=== PATIENT | female | born 1990 | race Caucasian/White ===

== ENCOUNTER 2019-02-13 03:40 | Inpatient (IN) | payer OTHER ==
[2019-02-13] MEDS ORDERED: Ondansetron PF 4 MG/2 ML Vial IVP PRN ×2 (04:17→20:14)
[2019-02-13] MEDS ORDERED: Misoprostol 200 MCG TAB PR PRN (04:17)
[2019-02-13] MEDS ORDERED: Butorphanol Tartrate 1 MG/ML VIAL SLOW IVP PRN (04:17)
[2019-02-13] MEDS ORDERED: Diphenoxylate HCl/Atropine Tablet PO PRN ×2 (04:17)
[2019-02-13] MEDS ORDERED: HYDROcodone/Acetaminophen 5/325 mg Tablet PO PRN ×2 (04:17)
[2019-02-13] MEDS ORDERED: Carboprost 250 MCG/ML AMP IM PRN (04:17)
[2019-02-13] MEDS ORDERED: NS / Oxytocin 40 units/1000ml 1,000 ML IV PRN (04:17)
[2019-02-13] MEDS ORDERED: Methylergonovine 0.2 MG/ML VIAL IM PRN (04:17)
[2019-02-13] MEDS ORDERED: Promethazine HCl 25 MG/ML VIAL IM PRN ×2 (04:17→20:14)
[2019-02-13] MEDS ORDERED: Lidocaine 1% (PF) 30 ML VIAL SC PRN (04:17)
[2019-02-13] MEDS ORDERED: Ibuprofen 800 MG TAB PO PRN (04:17)
[2019-02-13] MEDS ORDERED: hydrALAZINE 20 MG/ML VIAL SLOW IVP PRN (04:17)
[2019-02-13 05:13] LABS: Hemoglobin 11.8 g/dL (12.0-16.0); Mean Corpuscular HGB CONC 34.6 g/dL (32.0-36.0); Mean Corpuscular Hemoglobin 30.1 pg (27.0-31.0); Mean Corpuscular Volume 87.1 fL (78.0-98.0); Mean Platelet Volume 9.6 fL (7.4-10.4); Platelet Count 167 thou/uL (130-400); RBC Distribution Width 13.7 % (11.5-14.5); Red Blood Cell (RBC) Count 3.91 mill/uL (4.20-5.40); White Blood Cell (WBC) Count 12.6 thou/uL (4.8-10.8)
[2019-02-13 05:21] VITALS: BMI 33.8
[2019-02-13 05:31] LABS: ALT (SGPT) 8 U/L (8-55); AST (SGOT) 14 U/L (5-34); Albumin 3.5 g/dL (3.5-5.0); Alkaline Phosphatase 131 U/L (40-150); Anion Gap 14 mmol/L (10-20); BUN (Urea Nitrogen) 11 mg/dL (7.0-18.7); Bilirubin, Total 0.3 mg/dL (0.2-1.2); Calc. Creatinine Clearance 163 mL/min (70-130); Calcium 9.2 mg/dL (7.8-10.44); Carbon Dioxide 19 mmol/L (22-29); Chloride 107 mmol/L (98-107); Estimated GFR-MDRD Greater than 90; Globulin 2.4 g/dL (2.4-3.5); Glucose 86 mg/dL (70-105); Potassium 3.8 mmol/L (3.5-5.1); Protein, Total 5.9 g/dL (6.0-8.3); Sodium 136 mmol/L (136-145)
[2019-02-13 05:45] LABS: HBSAg Index 0.16 S/CO (0-0.99); Hep B Surf Ag Non-Reactive S/CO (NonReactive)
[2019-02-13 05:46] LABS: Syphilis Antibody Nonreactive (Nonreactive); Syphilis Antibody Index 0.03 S/CO (<1.00 Non-Reactive)
--- NOTE | 2019-02-13 11:32 | PDOC.LDHP ---
Labor and Delivery H&P Chief complaint: loss of fluid (and contractions) HPI: Pt was woken up around 0100am with a pop and ton of fluid loss. Five minutes later she started salvador. She has continued to lose fluid the entire morning. She arrived to the hospital at 0400 am with her automatic clipper. Contractions have picked up in intensity since her arrival. Current gestational age (weeks): 39 Due date: 02/15/19 Grav: 1 Para: 0 Current complications: other (polyhydramnios.) Abnormal US findings: Yes Current medications: pre-familia vitamins Previous surgical history: appendectomy Allergies/Adverse Reactions: Allergies Allergy/AdvReac Type Severity Reaction Status Date / Time No Known Allergies Allergy Verified 02/13/19 05:14 Social history: none - Physical Exam Abnormal vital signs: Mild range systolic blood pressure on admission and normal in 119s/60s . General: NAD Heart: other Lungs: nonlabored breathing Abdomen: gravid Extremeties: pitting edema FHT: category 1 - Vaginal Exam cm dilated: 3 Effacement: 50% Station: -2 - OB Labs Blood type: A RH: positive Antibody Screen: negative HIV: negative RPR: negative HEPSAg: negative 1 hour GCT: negative GBS: negative Urine drug screen: negative Rubella: immune - Assessment L&D Assessment: term rupture in membranes - Plan Plan: admit to L&D
[2019-02-13 13:42] LABS: Creatinine, Urine 57.96 mg/dL (47-110)
--- NOTE | 2019-02-13 17:38 | PDOC.LDPN ---
Labor & Delivery Progress Note - Subjective Subjective: comfortable - Objective Vital signs reviewed and normal: yes General: NAD, breathing through contractions Uterine fundus: non tender Dilation: 7 Effacement: 90% Station: 1+ FHT: category 1 [place] contractions every: q5-7 mins Resuscitative measures: maternal position change - Assessment (1) 40 weeks gestation of Code(s): Z3A.40 - 40 WEEKS GESTATION OF Current Visit: Yes Status : Acute (2) Primigravida Code(s): Z34.00 - ENCNTR FOR SUPRVSN OF NORMAL FIRST , UNSP TRIMESTER Current Visit: Yes Status: Acute (3) Failure to progress in first stage of labor Code(s): [id number] - Current Visit: Yes Status: Acute Plan: labor augmentation, other (Epidural for pain management and pelvic floor relaxation. Pitocin for augmentation. reasses as clinically indicated. IUPC if needed. )
[2019-02-13] MEDS ORDERED: Fentanyl 4 mcg/Bup 0.1% Cadd 100 ML ONE (17:43)
[2019-02-13] MEDS ORDERED: NS w/ Oxytocin 10 units 500 ML IV SCH (17:45)
[2019-02-13] MEDS: Lactated Ringer's 1,000 ML IV PRN ×2 (18:41→19:49)
[2019-02-13] MEDS ORDERED: diphenhydrAMINE 50 MG/ML VIAL IVP PRN (20:14)
[2019-02-13] MEDS ORDERED: Lactated Ringer's 500 ML IV PRN (20:14)
[2019-02-13] MEDS ORDERED: ePHEDrine/0.9% NaCl/PF SYRINGE 50 mg/10 ml SLOW IVP PRN (20:14)
[2019-02-13] MEDS ORDERED: Acetaminophen 325 MG TAB PO PRN (20:14)
[2019-02-13] MEDS ORDERED: Naloxone HCl 0.4 mg/ml Vial IVP PRN ×2 (20:14)
[2019-02-13] MEDS ORDERED: Communication Order-Pharmacy FS SCH (20:15)
[2019-02-13] MEDS ORDERED: Fentanyl 4 mcg/Bupivacaine 0.1% Cassette 100 ML EPIDURAL SCH (20:15)
[2019-02-13 20:48] LABS: Creatinine, Urine 109.01 mg/dL (47-110)
[2019-02-14] MEDS ORDERED: Fentanyl 4 mcg/Bup 0.1% Cadd 100 ML ONE (01:01)
[2019-02-14] MEDS: Lactated Ringer's 1,000 ML IV PRN (01:36)
[2019-02-14] MEDS ORDERED: Bicitra 30 ML UDCUP PO SCH (06:15)
[2019-02-14] MEDS ORDERED: CEFAZOLIN 2 GM in Premix Bag 1 BAG IVPB SCH (06:15)
[2019-02-14] MEDS ORDERED: Azithromycin 500 MG in Sodium Chloride 0.9% 250 ML 250 ML IVPB SCH (06:30)
[2019-02-14] MEDS ORDERED: Ketorolac Tromethamine 30 MG/ML VIAL ONE ×2 (06:31→07:32)
[2019-02-14] MEDS ORDERED: Ondansetron PF 4 MG/2 ML Vial ONE ×2 (06:31→07:32)
[2019-02-14] MEDS ORDERED: Dexamethasone 4 mg/ml Vial ONE (06:31)
[2019-02-14] MEDS ORDERED: Oxytocin 10 UNITS/ML VIAL ONE (06:31)
[2019-02-14] MEDS ORDERED: Lidocaine 2% 10 ML INJ ONE ×2 (06:41→06:56)
[2019-02-14] MEDS ORDERED: MORPHINE 5 MG/10 ML PF VIAL ONE (06:57)
[2019-02-14] MEDS ORDERED: PHENYLEPHRINE-NS 100 MCG/ML 10 ML SYRINGE ONE ×2 (06:59→07:32)
[2019-02-14] MEDS ORDERED: diphenhydrAMINE 50 MG/ML VIAL ONE ×2 (07:06→07:32)
[2019-02-14] MEDS ORDERED: HYDROmorphone 2 MG/ML VIAL SLOW IVP PRN (07:27)
[2019-02-14] MEDS ORDERED: Naloxone HCl 0.4 mg/ml Vial IVP PRN ×2 (07:27)
[2019-02-14] MEDS ORDERED: diphenhydrAMINE 50 MG/ML VIAL IVP PRN (07:27)
[2019-02-14] MEDS ORDERED: Ondansetron PF 4 MG/2 ML Vial IVP PRN ×2 (07:27→10:39)
[2019-02-14] MEDS ORDERED: Promethazine HCl 25 MG/ML VIAL IM PRN ×2 (07:27→10:39)
[2019-02-14] MEDS ORDERED: Promethazine HCl 25 MG SUPP PR PRN (07:27)
[2019-02-14] MEDS ORDERED: Naloxone HCl 0.4 mg/ml Vial IV PRN (07:27)
[2019-02-14] MEDS ORDERED: Ondansetron HCl/PF 4 MG/2 ML Vial IVP PRN (07:27)
[2019-02-14] MEDS ORDERED: Meperidine HCl/PF 25 MG/ML VIAL SLOW IVP PRN (07:27)
[2019-02-14] MEDS ORDERED: L&D-Morphine 4 MG/ML VIAL SLOW IVP PRN (07:27)
[2019-02-14] MEDS ORDERED: Communication Order-Pharmacy FS SCH (07:30)
[2019-02-14] MEDS ORDERED: Lidocaine 2% PF 5 ML VIAL ONE (07:32)
[2019-02-14] MEDS ORDERED: Dexamethasone 20 MG/5 ML VIAL ONE (07:32)
[2019-02-14] MEDS ORDERED: Bupivacaine/Epinephrine 0.5% 10 ML VIAL ONE (07:43)
--- NOTE | 2019-02-14 08:31 | OP ---
DATE OF PROCEDURE: 02/14/2019 PRIMARY TIGHT COOPER: Chrissy Ray CNM PREOPERATIVE DIAGNOSES: 1. Intrauterine at 39 weeks and 6 days. 2. Arrest of labor. POSTOPERATIVE DIAGNOSES: 1. Intrauterine at 39 weeks and 6 days. 2. Arrest of labor. PROCEDURE PERFORMED: Primary lower-transverse section. MANAGER CIVIL: Chrissy Ray CNM. ANESTHESIA: Spinal or epidural. BLOOD LOSS: Quantitative blood loss not available at the time of dictation. Estimated blood loss about 500 mL. URINARY OUTPUT: Urine clear. COUNTS: Correct. COMPLICATIONS: None. FINDINGS: Female infant delivered at 0716 hours. Apgars 8 and 9. Weight unavailable at the time of dictation. Normal-appearing uterus. SPECIMENS: Blood gas with a pH of 7.2. DESCRIPTION OF PROCEDURE: Ms. Ashley Coyne was taken to the operating room for primary secondary to arrest of labor. The patient had made very slow progress over the last 8 hours with no change management consultant the last several hours with documented adequate contractions. She was taken to the operating room, where her anesthesia was made to be adequate. She was prepared and draped in the normal sterile fashion and placed in the dorsal supine position. A Pfannenstiel skin incision was made and carried down to the level of the fascia. Fascia was incised and extended laterally with Sandhu scissors. The fascia was then grasped with 2 Brandyn clamps and elevated and dissected off sharply and bluntly from the underlying rectus muscles both superiorly and inferiorly. Peritoneal cavity was entered into bluntly and extended bluntly and sharply. A Lbake O retractor was then inserted. A bladder flap was created. Hysterotomy was made in the lower uterine segment in a transverse fashion. head was then delivered to the sterile field and with the aid of abdominal pressure, the baby was delivered without complication. The was bulb suctioned. Cord was delayed, clamped and cut, and the was handed to the awaiting attendants. The cord segment was then collected for blood gases. Blood was collected for assessment and the placenta was manually extracted. The hysterotomy was then closed with #1 PDS in a running locked suture, followed by an imbricating layer. Additional cbuann-lk-dryew was necessary for good hemostasis. The hysterotomy was then irrigated and found to be hemostatic. The peritoneum was closed with 2-0 chromic in a running fashion. The fascia was closed with 0 Vicryl in a running fashion. The subcu fat was closed with 2-0 plain gut in a running fashion. Skin was closed with 4-0 Monocryl in a running fashion. The patient was taken to recovery room in stable condition. Job ID: [id number]
[2019-02-14] MEDS ORDERED: Bisacodyl 10 MG SUPP PR PRN (10:39)
[2019-02-14] MEDS ORDERED: NS / Oxytocin 40 units/1000ml 1,000 ML IV SCH (10:39)
[2019-02-14] MEDS ORDERED: Misoprostol 200 MCG TAB PR PRN (10:39)
[2019-02-14] MEDS ORDERED: hydrALAZINE 20 MG/ML VIAL SLOW IVP PRN (10:39)
[2019-02-14] MEDS ORDERED: Methylergonovine 0.2 MG/ML VIAL IM PRN (10:39)
[2019-02-14] MEDS ORDERED: Adacel (T-DAP) 0.5 ML SYRINGE IM ONE (10:39)
[2019-02-14] MEDS ORDERED: diphenhydrAMINE 25 MG CAP PO PRN (10:39)
[2019-02-14] MEDS ORDERED: Lidocaine 2% MPF 10 ML AMP (For Epidural Use) ONE (11:11)
[2019-02-14] MEDS ORDERED: Bupivacaine/Epinephrine 0.25% 30 ML VIAL ONE (11:11)
[2019-02-14] MEDS: Lactated Ringer's 1,000 ML IV SCH ×2 (12:14→16:09)
[2019-02-14] MEDS: Ketorolac Tromethamine 30 MG/ML VIAL IVP SCH ×2 (14:59→23:44)
[2019-02-14] MEDS: Ibuprofen 800 MG TAB PO SCH ×2 (15:03→23:46)
[2019-02-14] MEDS: Docusate Calcium (SURFAK) 240 MG CAP PO SCH (23:45)
--- NOTE | 2019-02-15 00:14 | PDOC.PP ---
Post Progress Note Post Day #: POD1 Subjective: Resting, no specific c/o. PO intake tolerated: yes Flatus: no Ambulation: yes Vital Signs (12 hours) Temp Pulse Resp BP Pulse Ox 02/14/19 19:01 99.2 F 74 12 105/57 L 96 02/14/19 15:03 99.5 F 76 12 131/66 96 02/14/19 14:05 95 02/14/19 13:00 98.9 F 76 20 118/68 Weight Weight 83.915 kg - Physical Examination General: NAD Respiratory: non-labored breathing Abdominal: no distention Skin: CS incision dry & intact Psychiatric: normal affect Result Diagrams: 02/13/19 04:54 02/13/19 04:54 Additional Labs: Post Labs Blood Type A POSITIVE 02/13/19 04:54 Hep Bs Antigen Non-Reactive S/CO (NonReactive) 02/13/19 04:54 - Assessment/Plan Doing well. Werner is out. Routine postop care.
[2019-02-15] MEDS: Ketorolac Tromethamine 30 MG/ML VIAL IVP SCH ×2 (04:37→07:28)
[2019-02-15] MEDS: Ferrous Sulfate 325 MG TAB PO SCH ×3 (04:37→21:17)
[2019-02-15] MEDS: Ibuprofen 800 MG TAB PO SCH ×3 (04:38→21:17)
[2019-02-15] MEDS ORDERED: Sodium Chloride 0.9% 10 ML ONE (04:41)
[2019-02-15 07:23] LABS: #Lymphocytes 1.2 thou/uL (1.20-3.40); #Monocytes 1.1 thou/uL (0.11-0.59); #Neutrophils 12.1 thou/uL (1.40-6.50); %Eosinophils 0.2 % (0.0-10.0); %Lymphocytes 8.2 % (21.0-51.0); %Monocytes 7.7 % (0.0-10.0); %Neutrophils 83.8 % (42.0-75.0); Mean Corpuscular HGB CONC 34.6 g/dL (32.0-36.0); Mean Corpuscular Hemoglobin 31.1 pg (27.0-31.0); Mean Corpuscular Volume 90.1 fL (78.0-98.0); Platelet Count 121 thou/uL (130-400); RBC Distribution Width 14.1 % (11.5-14.5); Red Blood Cell (RBC) Count 2.57 mill/uL (4.20-5.40); White Blood Cell (WBC) Count 14.4 thou/uL (4.8-10.8)
[2019-02-15] MEDS: HYDROcodone/Acetaminophen 5/325 mg Tablet PO PRN ×2 (09:12→19:58)
[2019-02-15] MEDS: Prenatal Vitamin 1 TAB PO SCH (09:12)
[2019-02-15] MEDS: Docusate Calcium (SURFAK) 240 MG CAP PO SCH ×2 (09:12→21:18)
[2019-02-15] MEDS: Lactated Ringer's 1,000 ML IV SCH (13:38)
[2019-02-15] MEDS: Simethicone Chewable 80 MG TAB PO PRN (21:17)
[2019-02-16] MEDS: HYDROcodone/Acetaminophen 5/325 mg Tablet PO PRN ×5 (02:40→22:53)
--- NOTE | 2019-02-16 02:46 | PDOC.EVN ---
Event Note - Event Note Event Note: CAlled to bedside for sudden onset sob while walking from the bathroom. Pt is pod #2 for a primary csection. When i arrived pt was in her bed feeling better. She reports lungs felt like they were burning. vital signs are stable with bp mildly elevated. o2 sats 98% lungs clear, heart regular rate with strong systolic flow murmur. Pt reports that she has been evaluated by cardiology already for this murmur and it is benign. LE are nontender and symetrical. Neg ag's sign. hgb 8 from 12. Transient sob anemia flow murmur - not new will get ekg, repeat cbc If symptoms persist further eval for cardiomyopathy or PE may be warrented.
[2019-02-16] MEDS: Lactated Ringer's 1,000 ML IV SCH ×3 (05:47→15:39)
[2019-02-16] MEDS: Ibuprofen 800 MG TAB PO SCH ×3 (06:12→21:47)
[2019-02-16] MEDS: Simethicone Chewable 80 MG TAB PO PRN (06:21)
[2019-02-16 08:40] LABS: Mean Corpuscular HGB CONC 33.6 g/dL (32.0-36.0); Mean Corpuscular Volume 89.4 fL (78.0-98.0); Mean Platelet Volume 8.4 fL (7.4-10.4); Platelet Count 156 thou/uL (130-400); RBC Distribution Width 14.2 % (11.5-14.5); White Blood Cell (WBC) Count 16.2 thou/uL (4.8-10.8)
--- NOTE | 2019-02-16 09:03 | RAD ---
EXAM: Chest 2 views: HISTORY: Shortness of breath COMPARISON: None. FINDINGS: There is a normal-sized cardiomediastinal silhouette. There is no evidence of consolidation, mass, or pleural effusion. The bones are unremarkable. IMPRESSION: No evidence of acute cardiopulmonary disease
--- NOTE | 2019-02-16 10:07 | PDOC.EVN ---
Event Note - Event Note Event Note: Episode of SOB reported last night. CXR WNL, EKG is NSR with rate of 75. Hgb up from 8.0 to 9.0. Just walked and feeling better. Will observe for now.
[2019-02-16] MEDS: Prenatal Vitamin 1 TAB PO SCH (10:10)
[2019-02-16] MEDS: Ferrous Sulfate 325 MG TAB PO SCH ×2 (10:11→20:37)
[2019-02-16] MEDS: Docusate Calcium (SURFAK) 240 MG CAP PO SCH ×2 (10:11→20:37)
[2019-02-16] MEDS ORDERED: Labetalol 100 MG TAB PO SCH (13:45)
[2019-02-16 14:04] LABS: ALT (SGPT) 11 U/L (8-55); AST (SGOT) 18 U/L (5-34); Albumin 2.9 g/dL (3.5-5.0); Alkaline Phosphatase 89 U/L (40-150); Anion Gap 11 mmol/L (10-20); BUN (Urea Nitrogen) 9 mg/dL (7.0-18.7); Bilirubin, Total 0.2 mg/dL (0.2-1.2); Calc. Creatinine Clearance 182 mL/min (70-130); Calcium 8.9 mg/dL (7.8-10.44); Carbon Dioxide 24 mmol/L (22-29); Chloride 107 mmol/L (98-107); Estimated GFR-MDRD Greater than 90; Globulin 2.5 g/dL (2.4-3.5); Glucose 90 mg/dL (70-105); Potassium 3.9 mmol/L (3.5-5.1); Protein, Total 5.4 g/dL (6.0-8.3); Sodium 138 mmol/L (136-145)
[2019-02-16] MEDS ORDERED: Calcium Gluconate 4.6 MEQ in Sodium Chloride 0.9% 100 ML IVPB PRN (14:18)
--- NOTE | 2019-02-16 14:29 | PDOC.EVN ---
Event Note - Event Note Event Note: BPs now 160/86, 165/91. Denies EDGAR or visual changes, RUQ pain. Labs: plts= 156K, T. bili= 0.2, AST/ALT= 18/11. Urine Prot/Cr ratio on admit was 1.32. She was not given Mg in labor. Will transfer to L&D for MgSo4 and BP control.
[2019-02-16] MEDS ORDERED: Magnesium Sulfate 20 GM/WATER 500 ML BAG IVPB SCH (14:30)
[2019-02-16] MEDS: Magnesium Sulfate 20 gm/500 ml 20 GM/500 ML BAG IVPB SCH ×2 (15:39→23:42)
[2019-02-16] MEDS: Acetaminophen 325 MG TAB PO PRN (19:13)
[2019-02-16] MEDS: Labetalol 100 MG TAB PO SCH (20:37)
--- NOTE | 2019-02-17 00:22 | PDOC.PP ---
Post Progress Note Post Day #: POD3 Subjective: Back in L&D. Denies EDGAR or visual changes. PO intake tolerated: yes Flatus: yes Ambulation: yes Vital Signs (12 hours) Temp Pulse Resp BP BP 02/16/19 20:37 87 141/82 H 02/16/19 14:01 69 02/16/19 13:00 69 165/91 H 02/16/19 12:35 160/86 H 02/16/19 12:30 98.1 F 76 15 153/80 H Weight Weight 83.915 kg - Physical Examination General: NAD Respiratory: non-labored breathing Abdominal: no distention Skin: CS incision dry & intact Neurological: no gross focal deficits Psychiatric: normal affect Result Diagrams: 02/16/19 08:36 02/16/19 13:31 Additional Labs: Post Labs Blood Type A POSITIVE 02/13/19 04:54 Hep Bs Antigen Non-Reactive S/CO (NonReactive) 02/13/19 04:54 - Assessment/Plan BPs remain acceptable on MgS04 2 gm/hr and loading dose. Labs earlier today WNL. Continue Mg x 24 hrs. Labetalol 100 mg BID ordered.
[2019-02-17] MEDS: Lactated Ringer's 1,000 ML IV SCH (03:52)
[2019-02-17] MEDS: Ibuprofen 800 MG TAB PO SCH ×3 (05:57→20:36)
[2019-02-17] MEDS: HYDROcodone/Acetaminophen 5/325 mg Tablet PO PRN ×2 (05:59→15:35)
--- NOTE | 2019-02-17 09:00 | PDOC.EVN ---
Event Note - Event Note Event Note: Pt is diuresing well. Has urinated >6L since yesterday afternoon. will d/c magnesium at this time.
[2019-02-17] MEDS: Labetalol 100 MG TAB PO SCH (09:06)
[2019-02-17] MEDS: Docusate Calcium (SURFAK) 240 MG CAP PO SCH (09:06)
[2019-02-17] MEDS: Ferrous Sulfate 325 MG TAB PO SCH (09:06)
[2019-02-17] MEDS: Prenatal Vitamin 1 TAB PO SCH (09:06)
[2019-02-17] MEDS: Acetaminophen 325 MG TAB PO PRN (11:13)
[2019-02-17] MEDS ORDERED: Adacel (T-DAP) 0.5 ML SYRINGE IM ONE (13:34)
[2019-02-17] MEDS ORDERED: diphenhydrAMINE 25 MG CAP PO PRN (13:34)
[2019-02-17] MEDS ORDERED: Zolpidem Tartrate 5 MG TAB PO PRN (13:34)
--- NOTE | 2019-02-17 17:15 | EKG ---
Test Reason : Blood Pressure : / mmHG Vent. Rate : 075 BPM Atrial Rate : 075 BPM P-R Int : 104 ms QRS Dur : 084 ms QT Int : 360 ms P-R-T Axes : 033 059 029 degrees QTc Int : 402 ms Sinus rhythm with short DE Otherwise normal ECG No previous ECGs available Confirmed by TIMBO SEGOVIA ([id number]) on 02/17/2019 5:14:53 PM Referred By: MANUELA Confirmed By:TIMBO SEGOVIA
[2019-02-17] MEDS ORDERED: Labetalol 100 MG TAB PO SCH (21:00)
[2019-02-18] MEDS: HYDROcodone/Acetaminophen 5/325 mg Tablet PO PRN ×2 (03:05→12:43)
[2019-02-18] MEDS: Ferrous Sulfate 325 MG TAB PO SCH ×2 (03:06→09:12)
[2019-02-18] MEDS: Ibuprofen 800 MG TAB PO SCH ×2 (05:55→13:57)
[2019-02-18] MEDS ORDERED: Lidocaine 2% Viscous Solution 20 ML, Aluminum & Magnesium Hydroxide 30 ML, Donnatal Eli... SSW SCH (07:45)
[2019-02-18] MEDS ORDERED: Sodium Chloride 0.9% 10 ML ONE ×2 (07:46→18:55)
[2019-02-18] MEDS: hydrALAZINE 20 MG/ML VIAL SLOW IVP PRN ×2 (07:52→18:59)
--- NOTE | 2019-02-18 08:55 | PRG ---
DATE OF SERVICE: 02/18/2019 SUBJECTIVE: The patient is a 28-year-old female, now postoperative day 4 for primary secondary to arrest of labor. Her course has been complicated by preeclampsia status post magnesium, now on labetalol 100 mg twice a day. The patient reports this morning that she has been having a burning in her chest that caused her concern, and was worried. Once reassurance, everything is okay. The patient had symptoms much more severe couple days previous. We discussed those findings of a normal EKG and chest x-ray. 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 Otherwise, the patient is tolerating p.o., voiding on her own, having decreased lochia, and good pain control. OBJECTIVE: VITAL SIGNS: This morning reported blood pressure of 186/82, respiratory rate with 18 at the time of my evaluation, temperature 98.3 earlier this morning, and pulse is 73. GENERAL: She appears to be in no acute distress. She is alert, oriented, cooperative, and pleasant to interact with. HEAD: Normocephalic and atraumatic. SKIN: Incision is clean, dry, and intact. Fundus is firm. EXTREMITIES: Nontender and nonedematous. ASSESSMENT AND PLAN: The patient is postop day 4, status post primary for arrest of labor and preeclampsia, status post magnesium and on labetalol 100 mg twice a day. She is receiving 5 mg IV hydralazine now and I will be increasing her labetalol to 200 twice a day. Also giving her a GI cocktail to see if this burning that she is describing is GI in nature or maybe her sensation when her blood pressure spike. She will remain in-house here for at least the next 24 hours to monitor the affects of her new blood pressure regimen. Job ID: [id number]
[2019-02-18] MEDS ORDERED: Labetalol 100 MG TAB PO SCH (09:00)
[2019-02-18] MEDS: Prenatal Vitamin 1 TAB PO SCH ×2 (09:12)
[2019-02-18] MEDS ORDERED: NIFEdipine 10 MG CAP PO SCH ×2 (16:15→20:45)
--- NOTE | 2019-02-18 16:25 | PDOC.PP ---
Post Progress Note Post Day #: 5 Subjective: Fells well PO intake tolerated: yes Flatus: yes Ambulation: yes Vital Signs (12 hours) Temp Pulse Resp BP BP Pulse Ox 02/18/19 16:00 77 178/97 H 02/18/19 15:45 78 177/95 H 02/18/19 09:09 72 02/18/19 08:17 98.1 F 72 20 186/86 H 98 02/18/19 07:52 73 Weight Weight 185 lb Called for these elevated BPs at 1600...arrived to see her at 1620 as I was in L &D - Physical Examination General: NAD Cardiovascular: no m/r/g Respiratory: clear to auscultation bilaterally Abdominal: + bowel sounds Extremities: negative homans (B) Skin: CS incision dry & intact (Dressing in place...sutured under dressing per notes) Psychiatric: A&Ox3, normal affect Result Diagrams: 02/16/19 08:36 02/16/19 13:31 Additional Labs: Post Labs Blood Type A POSITIVE 02/13/19 04:54 Hep Bs Antigen Non-Reactive S/CO (NonReactive) 02/13/19 04:54 (1) Delivery by section Code(s): [id number] - Status: Acute - Assessment/Plan S/P SC from last Thursday on labetolol 200mg po BID. I have ordered (and RN given ) procardia 10mg po x 1 as she received hydrazine previously. We will recheck BPs Q20min x2 after dose. I have seen her at bedside and we reviewed meds. May need to incraese scheduled labetolol. Clinically, looks well with no peripheral edema.
--- NOTE | 2019-02-18 18:55 | PDOC.EVN ---
Event Note - Event Note Event Note: 1854: BPs initially after the 1600ish oral procardia were back down to normal. I was just called at 185 (1 min ago) that BP now 180/80. I have ordered hydralazine SIVP x1..recheck in 15 minutes. if still that high, we will bring back to L&D for closer obs and possible MagSulfate. I have ordered CMP and CBC
--- NOTE | 2019-02-18 18:58 | PDOC.EVN ---
Event Note - Event Note Event Note: Will transfer to L&D now to be conservative and follow BPs. OK for hydralazine first.
[2019-02-18 19:33] LABS: #Eosinphils 0.2 thou/uL (0.0-0.7); #Lymphocytes 1.8 thou/uL (1.20-3.40); #Neutrophils 9.4 thou/uL (1.40-6.50); %Basophils 0.4 % (0.0-1.0); %Eosinophils 1.8 % (0.0-10.0); %Lymphocytes 14.1 % (21.0-51.0); %Monocytes 7.6 % (0.0-10.0); %Neutrophils 76.1 % (42.0-75.0); Hemoglobin 10.1 g/dL (12.0-16.0); Mean Corpuscular HGB CONC 35.1 g/dL (32.0-36.0); Mean Corpuscular Hemoglobin 31.5 pg (27.0-31.0); Mean Corpuscular Volume 89.7 fL (78.0-98.0); Mean Platelet Volume 7.3 fL (7.4-10.4); Platelet Count 260 thou/uL (130-400); RBC Distribution Width 14.3 % (11.5-14.5); Red Blood Cell (RBC) Count 3.19 mill/uL (4.20-5.40); White Blood Cell (WBC) Count 12.4 thou/uL (4.8-10.8)
[2019-02-18 19:48] LABS: ALT (SGPT) 28 U/L (8-55); AST (SGOT) 26 U/L (5-34); Albumin 3.5 g/dL (3.5-5.0); Alkaline Phosphatase 83 U/L (40-150); Anion Gap 14 mmol/L (10-20); BUN (Urea Nitrogen) 10 mg/dL (7.0-18.7); Bilirubin, Total 0.4 mg/dL (0.2-1.2); Calc. Creatinine Clearance 173 mL/min (70-130); Calcium 9.4 mg/dL (7.8-10.44); Carbon Dioxide 22 mmol/L (22-29); Chloride 110 mmol/L (98-107); Estimated GFR-MDRD Greater than 90; Glucose 81 mg/dL (70-105); Potassium 4.1 mmol/L (3.5-5.1); Protein, Total 6.5 g/dL (6.0-8.3); Sodium 142 mmol/L (136-145)
--- NOTE | 2019-02-18 19:54 | PDOC.EVN ---
Event Note - Event Note Event Note: Patient now in L&D 9
[2019-02-18] MEDS ORDERED: Calcium Gluconate 4.6 MEQ, Admixture Fee 1 EACH in Sodium Chloride 0.9% 100 ML IVPB PRN (20:33)
[2019-02-18] MEDS ORDERED: NIFEdipine 10 MG CAP ONE (20:38)
[2019-02-18] MEDS ORDERED: Magnesium Sulfate 20 gm/500 ml 20 GM/500 ML BAG ONE (20:38)
--- NOTE | 2019-02-18 20:39 | PDOC.EVN ---
Event Note - Event Note Event Note: 2029 LDR6 At bedside now S. EDGAR as isolated SX O. 170/90 X 2 A/P: Severe PP Preeclampsia Restart mag Procardia 20mg po X 1 now Increase labetolol 300mg po BID Plan reviewed with RN and patient in room
[2019-02-18] MEDS ORDERED: Magnesium Sulfate 20 GM/WATER 500 ML BAG IVPB SCH (20:45)
[2019-02-18] MEDS: Magnesium Sulfate 20 gm/500 ml 20 GM/500 ML BAG IVPB SCH (21:15)
[2019-02-18] MEDS: Lactated Ringer's 1,000 ML IV SCH (21:15)
[2019-02-18] MEDS: Acetaminophen 500 MG TAB PO PRN (22:55)
[2019-02-19] MEDS: Ferrous Sulfate 325 MG TAB PO SCH ×3 (06:08→21:20)
[2019-02-19] MEDS: Labetalol 100 MG TAB PO SCH ×3 (06:08→21:15)
[2019-02-19] MEDS: Ibuprofen 800 MG TAB PO SCH ×3 (06:08→21:19)
--- NOTE | 2019-02-19 06:12 | PDOC.EVN ---
Event Note - Event Note Event Note: POD 5 s/p primacy CS On Magsulfate This AM will begin labetolol 300mg po BID (PM dose held last pm due to normal BPs after the 20mg procardia). S. Resting...no c/o O. BPs reviewed in QS...120s systolics A/P: POD 5...now on labetolol 300mg po BID starting today, was on 200 BID. On Mag for now Continue observation continue single agent maintenance adjustment
--- NOTE | 2019-02-19 08:59 | PDOC.EVN ---
Event Note - Event Note Event Note: S: 28 yo s/p primary LTCS POD 5 on magnesium a second time now for severe range bp 's, started at 2100 last night. Pt doing well this am. No complaints. O: VSS Urine outpt wnl No increased work of breathing A/P: sIUP delivered PreE with severe range bp's -Continue magnesium -Labetalol increased to 300mg BID this am. -No severe range bp's this am. -Will monitor today and likely dc magnesium at 2100 tonight. -Will continue to monitor bp's off magnesium after that. Addendum - Attending - Attending Attestation Date/Time: 02/19/19 1034 I personally evaluated the patient and discussed the management with Dr. Dumont. Currently back in L&D on Mg. Will DC at 24 hours and watch BP, now on Labetalol 300 mg BID. I agree with the Assessment and Plan documented above.
[2019-02-19] MEDS: Prenatal Vitamin 1 TAB PO SCH ×2 (09:09→14:21)
[2019-02-19] MEDS: Magnesium Sulfate 20 gm/500 ml 20 GM/500 ML BAG IVPB SCH (17:33)
--- NOTE | 2019-02-19 21:32 | PDOC.EVN ---
Event Note - Event Note Event Note: Resting comfortably. No c/o. BPs 130s/80's. Plan: Dc MgSo4 and continue Labetalol. Observe closely.
[2019-02-20] MEDS: Ibuprofen 800 MG TAB PO SCH ×4 (01:35→23:19)
--- NOTE | 2019-02-20 05:36 | PDOC.EVN ---
Event Note - Event Note Event Note: POD7 Mg stopped last PM at 2100. No c/o this AM. BPs= 130/80s range now. Plan: Labetalol 300 mg BID and observe today.
[2019-02-20] MEDS: Ferrous Sulfate 325 MG TAB PO SCH ×2 (09:56→20:29)
[2019-02-20] MEDS: Labetalol 100 MG TAB PO SCH ×2 (09:56→20:28)
[2019-02-20] MEDS: Prenatal Vitamin 1 TAB PO SCH ×2 (09:58→19:18)
[2019-02-20] MEDS ORDERED: Docusate Calcium (SURFAK) 240 MG CAP PO SCH (10:00)
--- NOTE | 2019-02-20 20:42 | PDOC.EVN ---
Event Note - Event Note Event Note: Patient asymptomatic but several severe range BPs this evening. Now due for next dose of Labetalol. Reviewed previous BPs and medications - have been all normal to mild range since increase in Labetalol on 02/18. Has reportedly had quite a few liters out today. Will give next dose of Labetalol and continue to monitor with no adjustments to medications at this time.
[2019-02-20] MEDS ORDERED: NIFEdipine 10 MG CAP ONE (21:13)
--- NOTE | 2019-02-20 21:15 | PDOC.EVN ---
Event Note - Event Note Event Note: Severe range BP persistent, will give Procardia 10mg x 1.
[2019-02-20] MEDS ORDERED: NIFEdipine 10 MG CAP PO SCH (21:30)
[2019-02-21] MEDS: Ibuprofen 800 MG TAB PO SCH ×3 (01:26→16:51)
--- NOTE | 2019-02-21 07:28 | PDOC.EVN ---
Event Note - Event Note Event Note: Doing well, no complaints this am. AFVSS - BPs improved after Procardia administration, now normal. Gen - AAO, NAD Abd - gravid, NTTP Ext - no edema NST: pending A/P: postop day 7 with preeclampsia, s/p Mag. Required treatment last night but otherwise all normal to mild range BPs. On Labetalol 300mg BID. If continues to spike, consider increase dose or switching to Procardia XL. Continue close monitoring.
[2019-02-21] MEDS: Prenatal Vitamin 1 TAB PO SCH ×2 (09:41→19:49)
[2019-02-21] MEDS: Docusate Calcium (SURFAK) 240 MG CAP PO SCH (09:41)
[2019-02-21] MEDS: NIFEdipine XL 60 MG TAB PO SCH (09:41)
[2019-02-21] MEDS: Ferrous Sulfate 325 MG TAB PO SCH ×2 (09:41→20:26)
[2019-02-21] MEDS ORDERED: Labetalol HCl 100 MG/20 ML VIAL SLOW IVP SCH (12:00)
[2019-02-21] MEDS ORDERED: Labetalol HCl 100 MG/20 ML VIAL ONE (12:16)
[2019-02-21] MEDS ORDERED: Labetalol HCl 100 MG/20 ML VIAL SLOW IVP PRN (14:26)
[2019-02-21] MEDS ORDERED: hydrALAZINE 20 MG/ML VIAL SLOW IVP PRN (14:29)
[2019-02-21] MEDS: Labetalol 100 MG TAB PO SCH ×2 (14:44→20:27)
[2019-02-21] MEDS ORDERED: hydrALAZINE 25 MG TAB PO SCH (15:00)
--- NOTE | 2019-02-22 01:06 | PDOC.EVN ---
Event Note - Event Note Event Note: POD9 Resting, no complaints. VSS AF Bps= 152/88, 137/85 Medicine consult today appreciated. Currently on dual agent therapy with Procardia and Labetalol. DC home when cleared by Medicine.
[2019-02-22] MEDS: Ibuprofen 800 MG TAB PO SCH ×2 (03:12→09:38)
--- NOTE | 2019-02-22 06:46 | PDOC.HOSPP ---
- Subjective Encounter Date: 02/21/19 Encounter Time: 13:00 Subjective: pt up in bed no complains. pt states she does not have a hx of HTN. She did not have preclampsia during her preganancy. However she had significant fluid retention and diuresed a significant amount of fluid. her blood pressure has been elevated. Multiple bp meds without adequate control. She does have a hx of panic attack but she states she feels calm and does not feel overwhelmed. pt was given multiple magnesium doses without any effect on her bp. - Objective Vital Signs & Weight: Vital Signs (12 hours) Temp Pulse Resp BP BP BP 02/22/19 04:00 76 18 135/86 02/22/19 00:00 98.5 F 67 18 137/86 02/21/19 20:27 80 137/85 02/21/19 20:00 98.7 F 80 18 137/85 02/21/19 19:00 75 18 118/77 Weight Weight 185 lb Result Diagrams: 02/18/19 19:19 02/18/19 19:19 Hospitalist ROS - Review of Systems Cardiovascular: denies: chest pain, palpitations, orthopnea, paroxysmal noc. dyspnea, edema, light headedness, other Gastrointestinal: denies: nausea, vomitting, abdominal pain, diarrhea, constipation, melena, hematochezia, other Genitourinary: denies: dysuria, frequency, incontinence, hematuria, retention, other - Medication Medications: Active Medications Generic Name Dose Route Start Last Admin Trade Name Freq PRN Reason Stop Dose Admin Acetaminophen 1,000 mg 02/18/19 20:36 02/18/19 22:55 Tylenol PO 1,000 mg Q6H PRN Administration Moderate to Severe Pain (6-10) Hydrocodone Bitart/Acetaminophen 1 tab 02/14/19 10:39 02/18/19 12:43 [place] 5/325 PO 1 tab Q4H PRN Administration Moderate Pain (4-6) Hydrocodone Bitart/Acetaminophen 2 tab 02/14/19 10:39 02/16/19 06:20 [place] 5/325 PO 2 tab Q4H PRN Administration Severe Pain (7-10) Docusate Calcium 240 mg 02/21/19 09:00 02/21/19 09:41 Surfak PO 240 mg DAILY GISELL Administration Ferrous Sulfate 325 mg 02/17/19 21:00 02/21/19 20:26 Feosol PO 325 mg BID GISELL Administration Magnesium Sulfate 20 gm in 500 mls @ 50 mls/hr 02/18/19 20:45 02/19/19 17:33 Magnesium Sulfate 20 Gm/500 Ml IVPB 500 mls INF GISELL Administration Ibuprofen 800 mg 02/14/19 14:00 02/22/19 03:12 Motrin PO 800 mg Q8HR GISELL Administration Labetalol HCl 200 mg 02/21/19 15:00 02/21/19 20:27 Normodyne PO 200 mg TID GISELL Administration Nifedipine 60 mg 02/21/19 09:00 02/21/19 09:41 Procardia Xl PO 60 mg DAILY GISELL Administration Multivit/Folic Acid/Iron 1 tab 02/15/19 09:00 02/21/19 09:41 Vitamin PO 1 tab DAILY GISELL Administration Multivit/Folic Acid/Iron 1 tab 02/18/19 09:00 02/21/19 19:49 Vitamin PO Not Given DAILY GISELL Sodium Chloride 10 ml 02/21/19 09:00 02/21/19 20:28 Flush - Normal Saline IVF 10 ml Q12HR GISELL Administration - Exam Neck: negative: supple, symmetric, no JVD, no thyromegaly, no lymphadenopathy, no carotid bruit, JVD Heart: negative: RRR, no murmur, no gallops, no rubs, normal peripheral pulses, irregular, diminshed peripheral pulses, murmur present, II/IV, III/IV Respiratory: negative: CTAB, no wheezes, no rales, no ronchi, normal chest expansion, no tachypnea, normal percussion, rales, rhonchi, tachypneic, wheezes Gastrointestinal: negative: soft, non-tender, non-distended, normal bowel sounds , no palpable masses, no hepatomegaly, no splenomegaly, no bruit, no guarding, no rigidity, tender to palpation, distended, diminished bowl sounds, voluntary guarding Hosp A/P (1) hypertension Code(s): O16.5 - UNSPECIFIED MATERNAL HYPERTENSION, COMP THE PUERPERIUM Status : Acute - Plan will start her on low dose labetalol and will continue procardia xr. Her acute Htn could be due to increase plasma volume. pt stated that she had a significant amount of fluid retention and underwent significant diuresis. Also NSAID can cause some degree of vasoconstriction. I would recommend changing her ibuprofen to prn or decreasing her dose. If her htn persists given no hx of previous htn she will need a outpatient work up for HTN. According to her partner she has exhibit medical problems which were panic attacks. will hold off on any benzo's especially since she is breast feeding.
[2019-02-22] MEDS: NIFEdipine XL 60 MG TAB PO SCH (09:01)
[2019-02-22] MEDS: Prenatal Vitamin 1 TAB PO SCH ×2 (09:02)
[2019-02-22] MEDS: Docusate Calcium (SURFAK) 240 MG CAP PO SCH (09:02)
[2019-02-22] MEDS: Ferrous Sulfate 325 MG TAB PO SCH (09:02)
[2019-02-22] MEDS: Labetalol 100 MG TAB PO SCH (09:03)
[2019-02-22] MEDS: Acetaminophen 500 MG TAB PO PRN (14:27)
--- NOTE | 2019-02-22 14:57 | PDOC.HOSPP ---
- Subjective Encounter Date: 02/22/19 Encounter Time: 13:00 Subjective: no abd pain or sob or chest pain says she almost passed out in restroom this am - Objective Vital Signs & Weight: Vital Signs (12 hours) Temp Pulse Resp BP BP Pulse Ox 02/22/19 11:10 98.3 F 84 20 110/70 98 02/22/19 09:03 76 02/22/19 09:01 71 123/73 02/22/19 04:00 76 18 135/86 Weight Weight 185 lb Result Diagrams: 02/18/19 19:19 02/18/19 19:19 Hospitalist ROS - Medication Medications: Active Medications Generic Name Dose Route Start Last Admin Trade Name Freq PRN Reason Stop Dose Admin Acetaminophen 1,000 mg 02/18/19 20:36 02/22/19 14:27 Tylenol PO 1,000 mg Q6H PRN Administration Moderate to Severe Pain (6-10) Hydrocodone Bitart/Acetaminophen 1 tab 02/14/19 10:39 02/18/19 12:43 [place] 5/325 PO 1 tab Q4H PRN Administration Moderate Pain (4-6) Hydrocodone Bitart/Acetaminophen 2 tab 02/14/19 10:39 02/16/19 06:20 [place] 5/325 PO 2 tab Q4H PRN Administration Severe Pain (7-10) Docusate Calcium 240 mg 02/21/19 09:00 02/22/19 09:02 Surfak PO 240 mg DAILY GISELL Administration Ferrous Sulfate 325 mg 02/17/19 21:00 02/22/19 09:02 Feosol PO 325 mg BID GISELL Administration Magnesium Sulfate 20 gm in 500 mls @ 50 mls/hr 02/18/19 20:45 02/19/19 17:33 Magnesium Sulfate 20 Gm/500 Ml IVPB 500 mls INF GISELL Administration Multivit/Folic Acid/Iron 1 tab 02/15/19 09:00 02/22/19 09:02 Vitamin PO Not Given DAILY GISELL Multivit/Folic Acid/Iron 1 tab 02/18/19 09:00 02/22/19 09:02 Vitamin PO 1 tab DAILY GISELL Administration Sodium Chloride 10 ml 02/21/19 09:00 02/22/19 09:03 Flush - Normal Saline IVF Not Given Q12HR GISELL - Exam General Appearance: NAD, awake alert Eye: PERRL, anicteric sclera ENT: no oropharyngeal lesions, moist mucosa Neck: supple, no JVD Heart: RRR, no murmur Respiratory: no wheezes, no rales Gastrointestinal: soft, non-distended, normal bowel sounds Extremities: no cyanosis, no edema Neurological: CN's grossly intact, no focal deficits Psychiatric: normal affect, A&O x 3 Hosp A/P (1) Anemia Code(s): D64.9 - ANEMIA, UNSPECIFIED Status: Acute (2) Delivery by section Code(s): DGJ9727 - Status: Acute (3) hypertension Code(s): O16.5 - UNSPECIFIED MATERNAL HYPERTENSION, COMP THE PUERPERIUM Status : Acute - Plan reduce labetalol to 100mg tid, dc procardia xl has diuresed nearly 14lts of urine per patient and at bedside since delivery echo if it can be done before dc or may be done as outpt is on tylenol 3 prn, no motrin d/w Dr.[place], is cleared for dc to f/u with in 4-6 weeks to check BP and pulse twice daily and record to f/u with Dr.Clint Mcgraw.
[2019-02-22] MEDS ORDERED: Labetalol 100 MG TAB PO SCH (15:00)
[2019-02-22 16:08] VITALS: TEMP 98.2
[2019-02-22 17:34] VITALS: BP 123/73
[2019-02-22] MEDS ORDERED: Ibuprofen 200 MG TAB PO SCH (21:00)
--- NOTE | 2019-02-24 09:13 | PQF ---
[employer] Ashley GARCIAVAHID [id number] CLINICAL DOCUMENTATION CLARIFICATION FORM: POST DISCHARGE Addendum to original discharge summary date: ____ Late entry note date: __ DATE: 02/24/2019 ATTN:VAHID GARCIA Please exercise your independent, professional judgment in responding to the clarification form. Clinical indicators are provided on the bottom of this form for your review Please check appropriate box(s): [ ] Acute blood loss anemia [ ] Post-op anemia related to acute blood loss [ ] Anemia: [ ] Aplastic [ ] Nutritional [ ] Drug induced (specify) ___ [ ] Hemolytic [ ] Hereditary [ ] Acquired [ ] Autoimmune [ ] Non-autoimmune [ ] Enzyme disorder [ ] Chronic Anemia: [ ] Blood loss [ ] Hemolytic [ ] Simple [ ] Due to Vitamin B12 Deficiency [ ] Other [ ] Anemia of Chronic Disease (please specify) [ ] Post hemorrhagic anemia [ ] Other diagnosis [ ] Unable to determine For continuity of documentation, please document condition throughout progress notes and discharge summary. Thank You. CLINICAL INDICATORS - SIGNS / SYMPTOMS / LABS - Anemia - Event note, 02/16, Delon Larsen MD - Transient SOB-Event note, 02/16, Delon Larsen MD - Hgb 8 [id number] note, 02/16, Delon Larsen MD - Estimated blood loss about 500ml- OP report, 02/14, Delon Larsen MD RISK FACTORS - - OP report, 02/14, Delon Larsen MD - Arrest of labour- OP report, 02/14, Delon Larsen MD TREATMENTS: - Pnv No 121/iron/folic acid.T- MAR, 02/13 (This form is maintained as a part of the permanent medical record) [id number] All Rights Reserved Katelin Sow [not provided] [not provided] MTDD
== END 2019-02-22 17:45 | disposition home or self-care (01) | DRG 788 ==
LOC: L&D/OP 03:40 → L&D-LIB 04:07 → L&D 20:19 → 3SW 02-14 11:16 → L&D 02-16 14:51 → 3SW 02-17 14:21 → L&D 02-18 19:32 → 3SW 02-22 11:49
PROVIDERS: ADMIT Student in an Organized Health Care Education/Training Program; ATTEND Student in an Organized Health Care Education/Training Program
PROC: 10D00Z1 Extraction of Products of Conception, Low, Open Approach (ICD-10-PCS; principal; 2019-02-14)
DX: O62.1 Secondary uterine inertia (principal); Z3A.39 39 weeks gestation of pregnancy; Z37.0 Single live birth; O40.3XX0 Polyhydramnios, third trimester, not applicable or unspecified; O90.81 Anemia of the puerperium; O14.95 Unspecified pre-eclampsia, complicating the puerperium; D64.9 Anemia, unspecified
CPT/HCPCS: 36415; 51702; 71046; 80053; 82570; 82805; 83735; 84156; 85025; 85027; 86780; 86850; 86900; 86901; 87340; 90715; 93005; 93010; 93306; A4353; J0360; J0456; J0690; J1100; J1200; J1885; J2001; J2274; J2405; J2550; J2590; J3475; J3490; J7050